=== PATIENT | male | born 1985 | race Caucasian/White ===

== ENCOUNTER → 2022-08-27 | Outpatient (CLI) | payer OTHER ==
--- NOTE | 2022-08-27 11:13 | XR ---
EXAMINATION TYPE: XR hand complete RT DATE OF EXAM: 08/27/2022 COMPARISON: NONE HISTORY: Pain TECHNIQUE: Three views are submitted. FINDINGS: The osseous structures are intact. The joint spaces are preserved and there is no acute fracture or dislocation. IMPRESSION: 1. No definite acute fracture or dislocation if symptoms persist, follow-up study in 7 to 10 days wo uld be suggested
--- NOTE | 2022-08-27 11:14 | XR ---
EXAMINATION TYPE: XR wrist complete RT DATE OF EXAM: 08/27/2022 COMPARISON: NONE HISTORY: Pain TECHNIQUE: Four views submitted. FINDINGS: Joint spaces are preserved. There is a tiny bony density along the dorsum of the wrist. There is soft tissue edema. IMPRESSION: 1. Lateral view there is a tiny bony density along the dorsum of the wrist which can be associated wi th a triquetral chip fracture. Correlate with point tenderness.
== END | disposition home or self-care (01) ==
LOC: RADXRMAIN 10:47
PROVIDERS: ATTEND Emergency Medicine
DX: S60.211A Contusion of right wrist, initial encounter (principal); S60.221A Contusion of right hand, initial encounter